=== PATIENT | female | born 1950 | race Two or more races ===

== ENCOUNTER 2018-07-01 12:27 | Observation (INO) | payer MEDICARE, OTHER ==
[~2018-07-01] VITALS: Ht 160 cm; Wt 88.3 kg
[2018-07-01 13:21] LABS: BASOPHILS % 0.8 % (0.0-1.0); EOSINOPHILS # (AUTO) 0.1 (0.0-0.4); EOSINOPHILS % 3.1 % (0.0-6.0); LYMPHOCYTES % 27.9 % (18.0-39.1); MEAN CORPUSCULAR HGB CONC 27.7 g/dL (31-35); MEAN CORPUSCULAR VOLUME 90.2 fL (81-99); MONOCYTES # (AUTO) 0.6 (0.2-0.8); MONOCYTES % 15.6 % (4.4-11.3); NEUTROPHILS # (AUTO) 1.9 (2.1-6.9); PLATELET COUNT 260 x10e3/uL (140-360); RED BLOOD COUNT 2.24 x10e6/uL (3.6-5.1); RED CELL DISTRIBUTION WIDTH 17.2 % (11.7-14.4)
[2018-07-01 13:23] LABS: HEMATOCRIT 20.2 % (34.2-44.1); HEMOGLOBIN 5.6 g/dL (12.0-16.0)
[2018-07-01 13:32] LABS: INR 1.05; PROTHROMBIN TIME 14.6 seconds (11.9-14.5)
[2018-07-01 13:33] LABS: PARTIAL THROMBOPLASTIN TIME 27.9 seconds (23.8-35.5)
[2018-07-01 13:44] LABS: BILIRUBIN,URINE NEGATIVE (NEGATIVE); CLARITY,URINE CLEAR (CLEAR); COLOR,URINE YELLOW (YELLOW); KETONES,URINE NEGATIVE (NEGATIVE); LEUKOCYTE ESTERASE ,URINE NEGATIVE (NEGATIVE); NITRITE,URINE NEGATIVE (NEGATIVE); PROTEIN,URINE DIPSTICK NEGATIVE (NEGATIVE); URINE UROBILINOGEN 0.2 mg/dL (0.2 - 1)
[2018-07-01] MEDS ORDERED: SODIUM CHLORIDE 0.9% 250ML 250 ML IV ONE ×2 (13:45→14:45)
[2018-07-01 14:13] LABS: ALANINE AMINOTRANSFERASE 21 IU/L (0-55); ALBUMIN 3.7 g/dL (3.5-5.0); ALKALINE PHOSPHATASE 71 IU/L (40-150); ANION GAP 14.4 mmol/L (8-16); BLOOD UREA NITROGEN 6 mg/dL (7-26); BUN/CREATININE RATIO 7 (6-25); CALCIUM 8.4 mg/dL (8.4-10.2); CARBON DIOXIDE 21 mmol/L (22-29); CHLORIDE 102 mmol/L (98-107); CREATININE, SERUM 0.86 mg/dL (0.57-1.11); EST GLOMERULAR FILTRATION RATE > 60 ML/MIN (60-); GLUCOSE 294 mg/dL (74-118); SODIUM 133 mmol/L (136-145)
[2018-07-01 14:14] LABS: POTASSIUM 4.4 mmol/L (3.5-5.1)
[2018-07-01 14:25] LABS: EPITHELIAL CELLS,URINE MODERATE /LPF
[2018-07-01] MEDS ORDERED: DEXTROSE 50% SYRINGE 50 ML IV PRN (14:45)
[2018-07-01] MEDS: INSULIN REGULAR, HUMAN 100 UNIT/1 ML 3ML VIAL SQ SCH ×2 (16:30→21:00)
[2018-07-01] MEDS ORDERED: ACETAMINOPHEN 325 MG TAB PO PRN (17:00)
[2018-07-01] MEDS ORDERED: DIPHENHYDRAMINE HCL 25 MG CAP PO PRN (17:00)
--- NOTE | 2018-07-01 17:17 | History and Physical ---
HISTORY OF PRESENT ILLNESS: A 67-year-old female who had a past medical history positive for diabetes, history of recurrent anemia, who had an EGD and a colonoscopy done in the past, which showed no significant abnormalities. Patient was sent from her primary care physician's office due to recurrent anemia, which was worsening. REVIEW OF SYSTEMS CARDIOVASCULAR: No chest pain, no palpitation. RESPIRATORY: No shortness of breath and no cough. GASTROINTESTINAL: No nausea, no vomiting, no diarrhea. GENITOURINARY: No blood in the stools. No black stools. ALLERGIES: NOT ALLERGIC TO ANY MEDICATION. SOCIAL HISTORY: She does not smoke. She drinks socially. PAST MEDICAL HISTORY: Mainly positive for diabetes mellitus and recurrent anemia. PHYSICAL EXAMINATION HEART: Regular rhythm. Normal S1, S2 sounds. LUNGS: Clear bilaterally. ABDOMEN: Soft. EXTREMITIES: No evidence of cyanosis, edema or trauma. LAB: On the BMP, sodium 133, potassium 4.4, chloride 102, CO2 21, BUN 6, creatinine 0.86. Glucose 294 and the CBC, white blood count 3.58, hemoglobin 5.6, hematocrit 20.2, platelet count 250,000. PT 14.6, INR 1.05, PTT 27.9. AST 37, ALT 21. Total bilirubin 0.5, alkaline phosphatase 71. FINAL IMPRESSIONS 1. Acute anemia. 2. Uncontrolled diabetes mellitus, type 2. PLAN OF TREATMENT: Gastroenterology consult Dr. Carmelo Almonte for further endoscopic evaluation. Patient, apparently, had an EGD and colonoscopy. I am going to order a bleeding scan. I am going to recheck the hemoglobin, hematocrit tomorrow also. I am going to also order iron, TIBC, ferritin, vitamin B12, folic acid level, stool guaiac x3. I am going to also get a hematology consult with Dr. Corea. She is going to be admitted to the hospital. Job#: [id number]
[2018-07-01 17:36] VITALS: BP 120/52
[2018-07-01 17:36] LABS: FERRITIN 14.64 ng/mL (4.63-204.00)
[2018-07-01 17:58] VITALS: BP 120/52
[2018-07-01] MEDS ORDERED: FLUOXETINE HCL20 MG PO (18:25)
[2018-07-01] MEDS ORDERED: DEXILANT60 MG PO (18:25)
[2018-07-01] MEDS ORDERED: FERROUS SULFAT325 MG PO (18:25)
[2018-07-01] MEDS ORDERED: LOSARTAN POTASS25 MG PO (18:25)
[2018-07-01] MEDS ORDERED: METFORMIN HCL500 MG PO (18:25)
[2018-07-01] MEDS ORDERED: LEVOTHYROXINE50 MCG PO (18:25)
[2018-07-01] MEDS ORDERED: ACARBOSE25 MG PO (18:25)
[2018-07-01] MEDS ORDERED: GLIPIZIDE5 MG PO (18:25)
[2018-07-01 20:00] VITALS: BP_SYST 121; BP_SYST 125; BP_DIAS 58
[2018-07-01] MEDS ORDERED: INSULIN LISPRO 100 UNIT/1 ML 3ML VIAL SQ SCH (21:00)
--- NOTE | 2018-07-01 23:22 | Diagnostic Imaging Report ---
Tagged-RBC GI Bleed Study Clinical information: 67-year-old female with recurrent anemia. Discussion: The patient's own red blood cells were labeled with 23 mCi of technetium-99m pertechnetate using the in vitro method (UltraTag). Dynamic images of the abdomen were obtained through 60 minutes. Distribution of tracer activity appears physiologic throughout the abdomen. No abnormal accumulation of tracer is seen within the gastrointestinal lumen. Impression: No scan evidence of active gastrointestinal bleeding at this time. Signed by: Dr Laurie Pandya MD on 07/01/2018 11:19 PM
[2018-07-02] VITALS (9 sets, daily range): BP systolic 120–156; BP diastolic 56–80
[2018-07-02] MEDS ORDERED: SODIUM CHLORIDE 0.9% 250ML 250 ML ONE ×3 (00:43→21:19)
[2018-07-02] MEDS: FUROSEMIDE INJ 10 MG/ML 2 ML VIAL IV PRN ×3 (03:19→11:35)
[2018-07-02] MEDS: INSULIN REGULAR, HUMAN 100 UNIT/1 ML 3ML VIAL SQ SCH ×4 (09:12→21:00)
[2018-07-02] MEDS ORDERED: CLONIDINE HCL 0.2 MG TAB PO PRN (10:00)
--- NOTE | 2018-07-02 11:01 | Progress Note ---
DATE: July 02, 2018 INTERNAL MEDICINE PROGRESS NOTE SUBJECTIVE: Patient is doing better. She is to get a blood transfusion. Bleeding scan was negative so far. OBJECTIVE VITAL SIGNS: Blood pressure 150/65. Temperature 98.9. Heart rate 87 per minute. Respiratory rate 14 per minute. Oxygen saturation is 98%. HEART: Regular rhythm. Normal S1 and S2 sounds. LUNGS: Clear bilaterally. ABDOMEN: Soft. EXTREMITIES: No evidence of cyanosis, edema or trauma. BLOOD WORK: We have BMP with sodium 133, potassium 4.4, chloride 102, CO2 21, BUN 6, creatinine 0.86. Glucose 294. On the CBC, white blood count is 3.58; hemoglobin 5.6; hematocrit 20.2; platelet count 260,000. PT 14.6, PTT 27.9, INR 1.05. AST 37, ALT 21, total bilirubin 0.5, alkaline phosphatase 71. The patient is getting blood transfusion. We are going to resume the home medications and clonidine 0.2 mg q.12 h. as needed for hypertension. Patient apparently had an EGD and colonoscopy as an outpatient because of the recurrent anemia and apparently was negative for any active bleeding. I told the patient she might need a capsule endoscopy as part of the workup and maybe bone marrow biopsy also if that is negative. Dr. Carmelo Almonte has been consulted from the gastroenterology point of view and Dr. Kristen Corea from the hematology point of view. CBC at noontime and tomorrow. Job#: [id number]
[2018-07-02 12:18] LABS: BASOPHILS % 0.4 % (0.0-1.0); EOSINOPHILS % 0.8 % (0.0-6.0); HEMATOCRIT 26.6 % (34.2-44.1); HEMOGLOBIN 8.2 g/dL (12.0-16.0); LYMPHOCYTES # (AUTO) 0.5 (1.0-3.2); LYMPHOCYTES % 19.4 % (18.0-39.1); MEAN CORPUSCULAR HEMOGLOBIN 26.8 pg (28-32); MEAN CORPUSCULAR HGB CONC 30.8 g/dL (31-35); MEAN CORPUSCULAR VOLUME 86.9 fL (81-99); MONOCYTES # (AUTO) 0.3 (0.2-0.8); MONOCYTES % 13.2 % (4.4-11.3); NEUTROPHILS # (AUTO) 1.7 (2.1-6.9); NEUTROPHILS % 65.8 % (38.7-80.0); PLATELET COUNT 205 x10e3/uL (140-360); RED BLOOD COUNT 3.06 x10e6/uL (3.6-5.1); RED CELL DISTRIBUTION WIDTH 15.9 % (11.7-14.4)
[2018-07-02] MEDS: GLIPIZIDE 5 MG TAB PO SCH (16:12)
[2018-07-02] MEDS ORDERED: GLIPIZIDE 5 MG TAB PO SCH (17:00)
[2018-07-02] MEDS ORDERED: DEXAMETHASONE SOD PHOS INJ 4 MG/ML VIAL IV PRN (19:15)
[2018-07-02] MEDS ORDERED: FAMOTIDINE 20 MG/2 ML VIAL IV PRN (19:15)
[2018-07-02] MEDS ORDERED: DIPHENHYDRAMINE HCL INJ 50 MG/ML VIAL IV PRN (19:15)
[2018-07-02] MEDS ORDERED: SODIUM CHLORIDE 0.9% IV ONE (20:00)
[2018-07-02] MEDS ORDERED: DEXAMETHASONE SOD PHOSPHATE IV ONE (20:00)
[2018-07-02] MEDS ORDERED: DIPHENHYDRAMINE HCL INJ 25 MG in SODIUM CHLORIDE 0.9% 50ML 50 ML IM ONE (20:00)
[2018-07-02] MEDS ORDERED: FAMOTIDINE INJ 20 MG in SODIUM CHLORIDE 0.9% 50ML 50 ML IV ONE (20:00)
[2018-07-02] MEDS ORDERED: IRON DEXTRAN INJ 500 MG in SODIUM CHLORIDE 0.9% 500ML 500 ML IV ONE (22:00)
[2018-07-02] MEDS ORDERED: IRON DEXTRAN INJ 50 MG in SODIUM CHLORIDE 0.9% 100 ML 100 ML IV ONE (22:00)
[2018-07-03] VITALS (8 sets, daily range): BP systolic 120–157; BP diastolic 58–67
[2018-07-03] MEDS: LEVOTHYROXINE SODIUM 25 MCG TABLET PO SCH (05:17)
[2018-07-03 05:47] LABS: BASOPHILS % 0.5 % (0.0-1.0); HEMATOCRIT 27.2 % (34.2-44.1); HEMOGLOBIN 8.4 g/dL (12.0-16.0); LYMPHOCYTES # (AUTO) 0.3 (1.0-3.2); LYMPHOCYTES % 14.6 % (18.0-39.1); MEAN CORPUSCULAR HEMOGLOBIN 26.8 pg (28-32); MEAN CORPUSCULAR HGB CONC 30.9 g/dL (31-35); MEAN CORPUSCULAR VOLUME 86.9 fL (81-99); MONOCYTES % 2.2 % (4.4-11.3); NEUTROPHILS # (AUTO) 1.5 (2.1-6.9); NEUTROPHILS % 82.2 % (38.7-80.0); PLATELET COUNT 193 x10e3/uL (140-360); RED BLOOD COUNT 3.13 x10e6/uL (3.6-5.1); RED CELL DISTRIBUTION WIDTH 15.4 % (11.7-14.4)
[2018-07-03] MEDS: GLIPIZIDE 5 MG TAB PO SCH ×2 (06:55→16:43)
[2018-07-03 07:27] LABS: ANISOCYTOSIS SLIGHT; HYPOCHROMASIA SLIGHT; PLATELET ESTIMATE ADEQUATE; PLATELET MORPHOLOGY COMMENT FEW LARGE; RBC MORPHOLOGY COMMENT NORMAL
[2018-07-03] MEDS ORDERED: METFORMIN HCL 500 MG TAB PO SCH ×2 (08:00→09:00)
[2018-07-03] MEDS: INSULIN REGULAR, HUMAN 100 UNIT/1 ML 3ML VIAL SQ SCH ×4 (08:05→20:46)
[2018-07-03] MEDS: FERROUS SULFATE 325 MG TAB PO SCH (08:48)
[2018-07-03] MEDS: PANTOPRAZOLE SOD 40 MG TABEC PO SCH (08:48)
[2018-07-03] MEDS: FLUOXETINE HCL 20 MG CAP PO SCH (08:48)
[2018-07-03] MEDS: LOSARTAN POTASSIUM 25 MG TAB PO SCH (08:48)
[2018-07-03] MEDS ORDERED: LEVOTHYROXINE SODIUM 50 MCG TAB PO SCH (09:00)
[2018-07-03] MEDS: CYANOCOBALAMIN INJ 1,000 MCG/ML VIAL IM SCH (10:52)
--- NOTE | 2018-07-03 17:56 | Progress Note ---
DATE: INTERNAL MEDICINE PROGRESS NOTE SUBJECTIVE: Patient is doing better. She got IV infusion. The white blood count dropped to 1.85 which is very low, not enough to put her on reverse isolation. We are going to recheck the numbers tomorrow on the CBC. Dr. Corea, emergency manager, is on the case also. PHYSICAL EXAM VITAL SIGNS: Blood pressure 134/60, temperature 98.6, heart rate 85 per minute, respiratory rate 18 per minute, oxygen saturation 99%. HEART: Regular rhythm, normal S1, S2 sounds. LUNGS: Clear bilaterally. ABDOMEN: Soft. On the BMP, sodium 133, potassium 4.4, chloride 102, CO2 21, BUN 6, creatinine 0.86, glucose 294. On the CBC, white blood count 1.85, hemoglobin 8.4, hematocrit 27.2, platelet count 183,000. PT 14.6, PTT 27.9, INR 1.05. AST 37, ALT 21, total bilirubin 0.5, alkaline phosphatase 71. FINAL IMPRESSIONS 1. Iron deficiency anemia. 2. Neutropenia. 3. Uncontrolled diabetes mellitus, type 2. 4. Hypothyroidism. 5. Gastroesophageal reflux disease. 6. Essential hypertension. PLAN OF TREATMENT: We are going to continue with CBC tomorrow, continue Tylenol 325 mg q.4 hours as needed, fluoxetine 20 mg daily, glipizide going to increase to 10 mg twice a day because of uncontrolled blood sugar. Keep metformin to 1,000 mg twice a day. Continue losartan 50 mg daily, Benadryl 25 mg q.4 hours as needed for itching, clonidine 0.2 mg twice a day, clonidine, Protonix 40 mg daily, vitamin B12 1,000 mcg daily, ferrous sulfate 325 mg daily, levothyroxine 25 mcg daily. Tentative discharge for tomorrow depending on the report on the CBC. Job#: [id number] OSBALDO
[2018-07-04] VITALS: BP 136/77
[2018-07-04 04:00] VITALS: BP 117/58
[2018-07-04] MEDS: LEVOTHYROXINE SODIUM 25 MCG TABLET PO SCH (05:21)
[2018-07-04 05:39] LABS: BASOPHILS % 0.3 % (0.0-1.0); HEMATOCRIT 25.4 % (34.2-44.1); HEMOGLOBIN 7.8 g/dL (12.0-16.0); LYMPHOCYTES # (AUTO) 0.6 (1.0-3.2); LYMPHOCYTES % 17.3 % (18.0-39.1); MEAN CORPUSCULAR HEMOGLOBIN 26.6 pg (28-32); MEAN CORPUSCULAR HGB CONC 30.7 g/dL (31-35); MEAN CORPUSCULAR VOLUME 86.7 fL (81-99); MONOCYTES # (AUTO) 0.3 (0.2-0.8); MONOCYTES % 8.8 % (4.4-11.3); NEUTROPHILS # (AUTO) 2.7 (2.1-6.9); NEUTROPHILS % 73.1 % (38.7-80.0); PLATELET COUNT 190 x10e3/uL (140-360); RED BLOOD COUNT 2.93 x10e6/uL (3.6-5.1); RED CELL DISTRIBUTION WIDTH 15.2 % (11.7-14.4)
[2018-07-04] MEDS: INSULIN REGULAR, HUMAN 100 UNIT/1 ML 3ML VIAL SQ SCH ×3 (08:30→16:18)
[2018-07-04] MEDS: GLIPIZIDE 5 MG TAB PO SCH ×2 (08:30→16:18)
[2018-07-04 08:31] VITALS: BP 134/67
[2018-07-04] MEDS: PANTOPRAZOLE SOD 40 MG TABEC PO SCH (09:31)
[2018-07-04] MEDS: FLUOXETINE HCL 20 MG CAP PO SCH (09:31)
[2018-07-04] MEDS: LOSARTAN POTASSIUM 25 MG TAB PO SCH (09:31)
[2018-07-04] MEDS: CYANOCOBALAMIN INJ 1,000 MCG/ML VIAL IM SCH (09:31)
[2018-07-04] MEDS: METFORMIN HCL 500 MG TAB CR PO SCH ×2 (09:31→16:18)
[2018-07-04] MEDS: FERROUS SULFATE 325 MG TAB PO SCH (09:31)
[2018-07-04 11:13] VITALS: BP 146/63
[2018-07-04 16:19] VITALS: BP 128/58
--- NOTE | 2018-07-04 22:12 | Discharge Summary ---
HISTORY OF PRESENT ILLNESS: Patient is a 67-year-old female who had a past medical history positive for chronic anemia and diabetes. She had an EGD and colonoscopy in the past, which showed no significant evidence of any bleeding. She was sent from the primary care physician's office because of severe anemia. She received blood transfusions. She was found to have iron deficiency anemia and vitamin B12 deficiency. Patient had a GI workup done in the past. She might need bowel enteroscopy or a capsule endoscopy to rule out any type of small leak or bleeding in the small bowel. The patient is doing okay. She is going home today. She received iron infusion. She is going to be seen by Dr. Johnston also to get more iron infusion. He recommended vitamin B12 daily for a week, once a week for a month and once a month for lifetime. PHYSICAL EXAM VITAL SIGNS: Blood pressure 128/58, temperature 98.3, heart rate 75 per minute, respiratory rate 18 per minute, oxygen saturation 98%. HEART: Regular rhythm. Normal S1 and S2 sounds. LUNGS: Clear bilaterally. ABDOMEN: Soft. No tenderness. No distention. LAB DATA: On the BMP; sodium 133, potassium 4.4, chloride 102, CO2 of 21, BUN 6, creatinine 0.86, and glucose 294. On the CBC; white blood count 3.65, hemoglobin 7.8, hematocrit 25.4, platelet count 180,000. PT 14.6, PTT 27.9. INR 1.05. AST 37, ALT 21, total bilirubin 0.5 and alkaline phosphatase 71. FINAL IMPRESSION 1. Recurrent iron deficiency anemia. 2. Vitamin B12 deficiency. 3. Hypertension. 4. Diabetes mellitus type 2. 5. Hypothyroidism. PLAN OF TREATMENT: Patient will be going home with vitamin B12 at 1000 mcg IM daily for a week, once a week for a month and once a month following that. Continue losartan 50 mg daily, metformin 1000 mg twice a day, glipizide 10 mg twice a day, Protonix 40 mg daily, clonidine 0.2 mg twice a day, ferrous sulfate 325 mg daily, levothyroxine 25 mcg daily and fluoxetine 20 mg daily. FOLLOWUP: Follow up with Dr. Kristen Johnston, arts administrator in a week and also her primary care physician. DIET: An 1800-calorie ADA diet, low-salt diet. Job#: [id number] JENNIFER
== END 2018-07-04 19:26 | disposition home or self-care (01) ==
LOC: ER 12:27 → ERHOLD 14:38 → IMCU 16:53
PROVIDERS: ADMIT Internal Medicine; ATTEND Internal Medicine
DX: D50.9 Iron deficiency anemia, unspecified (principal); E53.8 Deficiency of other specified B group vitamins; D70.9 Neutropenia, unspecified; I10 Essential (primary) hypertension; E11.65 Type 2 diabetes mellitus with hyperglycemia; Z79.84 Long term (current) use of oral hypoglycemic drugs; E03.9 Hypothyroidism, unspecified
CPT/HCPCS: 36415 ×4; 36430; 78278; 80053; 81001; 82607; 82728; 82746; 82948 ×4; 83540; 84466; 85025 ×4; 85610; 85730; 86850; 86900; 86920; 87086; 93005; 99284; A9512 ×2; G0378 ×4; J1100; J1200; J1750; J1940; J3420 ×2; J7040; J7050; P9016; S0164 ×2

== ENCOUNTER → 2022-01-23 | Day surgery (SDC) | payer MEDICARE, OTHER ==
[2022-01-22 14:00] LABS: INR 1.07; PARTIAL THROMBOPLASTIN TIME 26.9 seconds (23.8-35.5); PROTHROMBIN TIME 14.9 seconds (11.9-14.5)
[~2022-01-23] MED LIST: ACARBOSE25 MG PO; B&O 60MG R/S 60 MG SUPP PR ONE; DEXAMETHASONE SOD PHOS INJ 4 MG/ML SDV ONE; DEXILANT60 MG PO; EPHEDRINE SULFATE INJ 50 MG/ML VIAL ONE; FENTANYL CITRATE/PF 100MCG/2 ML INJ ONE; FERROUS SULFAT325 MG PO; FLUOXETINE HCL20 MG PO; FOLATE PO; FUROSEMIDE40 MG PO; GLIPIZIDE5 MG PO; IOPAMIDOL 610MG/1ML 300 MG/ML VIAL IV ONE; LEVOTHYROXINE50 MCG PO; LIDOCAINE HCL 2% LOCAL INJ 5 ML SDV VIAL INJ ONE; LOSARTAN POTASS25 MG PO; METFORMIN HCL500 MG PO; MIDAZOLAM HCL 2 MG/2 ML VIAL ONE; MILK THISTLE175 M2 PO; NUTRITIONAL YEAST PO; OMEPRAZOLE40 MG PO; ONDANSETRON HCL INJ 2MG/ML 2ML 2 MG/ML VIAL ONE; POTASSIUM PO; POVIDONE IODINE 0.05% 0.05 % ML PO ONE; PROPOFOL IV EMULSION 10 MG/ML 20 ML VIAL ONE; PROPRANOLOL HCL10 MG PO; SEVOFLURANE INHAL SOLN 250 ML PEN BTL ONE; SLOW-MAG64 MG PO; SPIRONOLACTONE25 MG PO; VIT B1 PO; VIT B12; [UNRECOGNIZED DRUG - OTHER] PO
[2022-01-23 13:20] VITALS: BP 146/59
== END | disposition home or self-care (01) ==
LOC: OR 09:09
PROVIDERS: ATTEND Urology
DX: N81.6 Rectocele (principal); N81.10 Cystocele, unspecified; D64.9 Anemia, unspecified; I10 Essential (primary) hypertension; R73.03 Prediabetes; K57.92 Diverticulitis of intestine, part unspecified, without perforation or abscess without bleeding; K21.9 Gastro-esophageal reflux disease without esophagitis; M19.90 Unspecified osteoarthritis, unspecified site; H91.90 Unspecified hearing loss, unspecified ear; Z01.810 Encounter for preprocedural cardiovascular examination; Z01.812 Encounter for preprocedural laboratory examination; Z01.818 Encounter for other preprocedural examination; Z20.822 Contact with and (suspected) exposure to COVID-19; Z79.899 Other long term (current) drug therapy
CPT/HCPCS: 0223U; 36415 ×2; 52005; 71046; 74420; 82948; 85610; 85730; 93005; C1758; J0690; J1100; J2001; J2250; J2405; J2704; J3010; Q9967